=== PATIENT | male | born 2000 | race Caucasian/White ===

== ENCOUNTER 2023-10-10 16:34 | Inpatient (IN) | payer OTHER ==
--- NOTE | 2023-10-10 16:40 | ED ---
General Adult HPI - General Source: patient, RN notes reviewed <Angelique Shane - Last Filed: 10/10/23 16:38> <Reynaldo Drummond - Last Filed: 10/11/23 03:09> - General Stated complaint: sore throat Time Seen by Provider: 10/10/23 16:38 - History of Present Illness Initial comments: 22 year old male presents to the emergency department for evaluation of sore throat and chest congestion. He reports redness to the back of his throat with painful swallowing. (Angelique Shane) 22-year-old male presenting with chief complaint of sore throat. Patient has had symptoms since Sunday. In addition to sore throat he admits to chest congestion, nausea, vomiting, and cough. He is having no chest pain or difficulty breathing. States that he previously had a fever. No dysphagia. No recent surgery. No injury or trauma. (Reynaldo Drummond) - Related Data Home Medications Medication Instructions Recorded Confirmed No Known Home Medications 10/10/23 10/10/23 Allergies Allergy/AdvReac Type Severity Reaction Status Date / Time citric acid Allergy Itching in Verified 10/10/23 22:13 throat Review of Systems ROS Other: All systems not noted in ROS Statement are negative. <Angelique Shane - Last Filed: 10/10/23 16:38> ROS Other: All systems not noted in ROS Statement are negative. <Reynaldo Drummond - Last Filed: 10/11/23 03:09> ROS Statement: Those systems with pertinent positive or pertinent negative responses have been documented in the HPI. General Exam <Angelique Shane - Last Filed: 10/10/23 16:38> Limitations: no limitations General appearance: alert, in no apparent distress Head exam: Present: atraumatic, normocephalic Eye exam: Present: normal appearance, EOMI Expanded Mouth exam: Present: normal external inspection Throat exam: tonsillar erythema Neck exam: Present: normal inspection, other (Subcutaneous emphysema felt on p alpation) Respiratory exam: Present: normal lung sounds bilaterally. Absent: respiratory distress, wheezes, rales, rhonchi, stridor Cardiovascular Exam: Present: regular rate, normal rhythm, normal heart sounds. Absent: systolic murmur, diastolic murmur, rubs, gallop, clicks Neurological exam: Present: alert, oriented X3 Psychiatric exam: Present: normal affect, normal mood Skin exam: Present: warm, dry <Reynaldo Drummond - Last Filed: 10/11/23 03:09> - General Exam Comments Initial Comments: Visual Physical Exam Vital signs reviewed General: Well-appearing, nontoxic, no acute distress. Head: Normocephalic, atraumatic Eyes: PERRLA, EOMI ENT: Airway patent Chest: Nonlabored breathing Skin: No visual rash, normal skin tone Neuro: Alert and oriented 3 Musculoskeletal: No gross abnormalities (Angelique Shane) Course Vital Signs 10/10/23 10/10/23 10/11/23 19:12 23:00 01:00 Temperature 98.9 F Pulse Rate 52 L 60 60 Respiratory 18 16 16 Rate Blood Pressure 108/72 121/90 O2 Sat by Pulse 100 96 98 Oximetry Medical Decision Making <Angelique Shane - Last Filed: 10/10/23 16:38> - Lab Data Result diagrams: 10/10/23 20:51 10/10/23 20:51 <Reynaldo Drummond - Last Filed: 10/11/23 03:09> - Medical Decision Making Quick note preformed by Angelique Shane PA-C (Angelique Shane) This is a 22-year-old male presenting with chief complaint of sore throat, chest congestion, vomiting ongoing since Sunday. Patient is having no dysphagia, difficulty breathing, chest pain, abdominal pain. On physical exam there was crepitus felt over palpation of the neck. Patient is negative for influenza, COVID, RSV, and group A strep. On x-ray there is evidence of pneumomediastinum with subcutaneous gas in the lower neck soft tissues. Patient is informed of these results. He will require admission with IV antibiotics. Basic labs are ordered and Unasyn is ordered. CT with contrast of the chest abdomen and pelvis is ordered. Patient is then brought to room 15 from the waiting room at 2052 and medications are administered. Patient is agreeable with plan for admission. I discussed this case with my attending Dr. Antunez. Was pt. sent in by a medical professional or institution (, PA, [facility], urgent care, hospital, or [facility]...) When possible be specific @ -No Did you speak to anyone other than the patient for history (EMS, parent, family, police, friend...)? What history was obtained from this source @ -No Did you review nursing and triage notes (agree or disagree)? Why? @ -I reviewed and agree with nursing and triage notes Were old charts reviewed (outside hosp., previous admission, EMS record, old EKG, old radiological studies, urgent care reports/EKG's, [facility] records)? Report findings @ -No old charts were reviewed Differential Diagnosis (chest pain, altered mental status, abdominal pain women, abdominal pain men, vaginal bleeding, weakness, fever, dyspnea, syncope, headache, dizziness, GI bleed, back pain, seizure, CVA, palpatations, mental health, musculoskeletal)? @ -Differential includes strep throat, viral pharyngitis, peritonsillar abscess, epiglottitis, rupture, this is not an all-inclusive list EKG interpreted by me (3pts min.). @ -As above X-rays interpreted by me (1pt min.). @ -Chest x-ray shows pneumomediastinum with subcutaneous gas in the lower neck soft tissues CT interpreted by me (1pt min.). @ -CT shows extensive subcutaneous emphysema in the neck, mediastinum and throughout the upper thorax. No evidence for pneumothorax. No bronchial wall defect definitively visualized and there is no defect within the esophagus. Mild bilateral gynecomastia. U/S interpreted by me (1pt. min.). @ -None done What testing was considered but not performed or refused? (CT, X-rays, U/S, labs)? Why? @ -None What meds were considered but not given or refused? Why? @ -None Did you discuss the management of the patient with other professionals (professionals i.e. , PA, [facility], lab, RT, psych nurse, social worker health services, pile driving setter, teacher, airframe technical officer, assistant case manager)? Give summary @ -I spoke with Tucker Kong from [facility] hospitalist group who accepted admission Was smoking cessation discussed for >3mins.? @ -No Was critical care preformed (if so, how long)? @ -No Were there social determinants of health that impacted care today? How? (Homelessness, low income, unemployed, alcoholism, drug addiction, transportation, low edu. Level, literacy, decrease access to med. care, [place] [facility], rehab)? @ -No Was there de-escalation of care discussed even if they declined (Discuss DNR or withdrawal of care, Hospice)? DNR status @ -No What co-morbidities impacted this encounter? (DM, HTN, Smoking, COPD, CAD, Cancer, CVA, ARF, Chemo, Hep., AIDS, mental health diagnosis, sleep apnea, morbid obesity)? @ -None Was patient admitted / discharged? Hospital course, mention meds given and route, prescriptions, significant lab abnormalities, going to OR and other pertinent info. @ -Patient admitted, see above for details Undiagnosed new problem with uncertain prognosis? @ -No Drug Therapy requiring intensive monitoring for toxicity (Heparin, Nitro, Insulin, Cardizem)? @ -No Were any procedures done? @ -No Diagnosis/symptom? @ -Pneumomediastinum Acute, or Chronic, or Acute on Chronic? @ -Acute Uncomplicated (without systemic symptoms) or Complicated (systemic symptoms)? @ -Complicated Side effects of treatment? @ -No Exacerbation, Progression, or Severe Exacerbation? @ -No Poses a threat to life or bodily function? How? (Chest pain, [place], CA, pneumonia, PE, COPD, DKA, ARF, appy, cholecystitis, CVA, Diverticulitis, Homicidal, Suicidal, threat to staff... and all critical care pts) @ -Yes (Reynaldo Drummond) - Lab Data Lab Results 10/10/23 10/10/23 10/10/23 Range/Units 17:27 17:27 20:51 WBC 10.1 (4.0-11.0) k/uL RBC 5.07 (4.30-5.90) m/uL Hgb 15.2 (13.0-17.5) gm/dL Hct 44.4 (39.0-53.0) % MCV 87.6 (80.0-100.0) fL MCH 30.0 (25.0-35.0) pg MCHC 34.2 (31.0-37.0) g/dL RDW 12.3 (11.5-15.5) % Plt Count 199 (150-450) k/uL MPV 9.7 Neutrophils % 46 % Lymphocytes % 43 % Monocytes % 5 % Eosinophils % 4 % Basophils % 0 % Neutrophils # 4.7 (1.3-7.7) k/uL Lymphocytes # 4.4 (1.0-4.8) k/uL Monocytes # 0.5 (0-1.0) k/uL Eosinophils # 0.4 (0-0.7) k/uL Basophils # 0.0 (0-0.2) k/uL Sodium (137-145) mmol/L Potassium (3.5-5.1) mmol/L Chloride (98-107) mmol/L Carbon Dioxide (22-30) mmol/L Anion Gap mmol/L BUN (9-20) mg/dL Creatinine (0.66-1.25) mg/dL Est GFR (CKD-EPI)AfAm (>60 ml/min/1.73 sqM) Est GFR (CKD-EPI)NonAf (>60 ml/min/1.73 sqM) Glucose (74-99) mg/dL Calcium (8.4-10.2) mg/dL Total Bilirubin (0.2-1.3) mg/dL AST (17-59) U/L ALT (4-49) U/L Alkaline Phosphatase (38-126) U/L Total Protein (6.3-8.2) g/dL Albumin (3.5-5.0) g/dL Influenza Type A (PCR) Not Detected (Not Detectd) Influenza Type B (PCR) Not Detected (Not Detectd) RSV (PCR) Not Detected (Not Detectd) SARS-CoV-2 (PCR) Not Detected (Not Detectd) Group A Strep (PCR) NOT DETECTED (Not Detectd) 10/10/23 Range/Units 20:51 WBC (4.0-11.0) k/uL RBC (4.30-5.90) m/uL Hgb (13.0-17.5) gm/dL Hct (39.0-53.0) % MCV (80.0-100.0) fL MCH (25.0-35.0) pg MCHC (31.0-37.0) g/dL RDW (11.5-15.5) % Plt Count (150-450) k/uL MPV Neutrophils % % Lymphocytes % % Monocytes % % Eosinophils % % Basophils % % Neutrophils # (1.3-7.7) k/uL Lymphocytes # (1.0-4.8) k/uL Monocytes # (0-1.0) k/uL Eosinophils # (0-0.7) k/uL Basophils # (0-0.2) k/uL Sodium 142 (137-145) mmol/L Potassium 3.8 (3.5-5.1) mmol/L Chloride 106 (98-107) mmol/L Carbon Dioxide 26 (22-30) mmol/L Anion Gap 10 mmol/L BUN 16 (9-20) mg/dL Creatinine 0.66 (0.66-1.25) mg/dL Est GFR (CKD-EPI)AfAm >90 (>60 ml/min/1.73 sqM) Est GFR (CKD-EPI)NonAf >90 (>60 ml/min/1.73 sqM) Glucose 86 (74-99) mg/dL Calcium 9.2 (8.4-10.2) mg/dL Total Bilirubin 0.8 (0.2-1.3) mg/dL AST 41 (17-59) U/L ALT 22 (4-49) U/L Alkaline Phosphatase 75 (38-126) U/L Total Protein 7.0 (6.3-8.2) g/dL Albumin 4.4 (3.5-5.0) g/dL Influenza Type A (PCR) (Not Detectd) Influenza Type B (PCR) (Not Detectd) RSV (PCR) (Not Detectd) SARS-CoV-2 (PCR) (Not Detectd) Group A Strep (PCR) (Not Detectd) Disposition <Angelique Shane - Last Filed: 10/10/23 16:38> Time of Disposition: 20:48 <Reynaldo Drummond - Last Filed: 10/11/23 03:09> Clinical Impression: Pneumomediastinum Disposition: ADMITTED IP TO THIS HOSP Condition: Fair
--- NOTE | 2023-10-10 20:24 | XR ---
EXAMINATION TYPE: XR chest 2V DATE OF EXAM: 10/10/2023 8:17 PM CLINICAL INDICATION:Male, 22 years old with history of chest congestion; PHH COMPARISON: None TECHNIQUE: XR chest 2V Frontal and lateral views of the chest. FINDINGS: Lungs/Pleura: There is no evidence of pleural effusion, focal consolidation, or pneumothorax. Pulmonary vascularity: Unremarkable. Heart/mediastinum: Cardiomediastinal silhouette is unremarkable. Musculoskeletal: No acute osseous pathology. Other findings: Subcutaneous gas in the neck bilaterally. Additionally there is suspected pneumoperit oneum on lateral view. IMPRESSION: Pneumomediastinum with subcutaneous gas in the lower neck soft tissues.
[2023-10-10] MEDS ORDERED: AMPICILLIN-SULBACTAM 3 GM in SODIUM CHLORIDE 0.9% 100 ML IVPB STA (20:36)
[2023-10-10 21:20] LABS: Basophils % (A) 0 %; Eosinophils # (A) 0.4 k/uL (0-0.7); Eosinophils % (A) 4 %; HCT 44.4 % (39.0-53.0); HGB 15.2 gm/dL (13.0-17.5); Lymphocytes # (A) 4.4 k/uL (1.0-4.8); Lymphocytes % (A) 43 %; MCHC 34.2 g/dL (31.0-37.0); MCV 87.6 fL (80.0-100.0); Mean Platelet Volume 9.7; Monocytes # (A) 0.5 k/uL (0-1.0); Monocytes % (A) 5 %; Neutrophils # (A) 4.7 k/uL (1.3-7.7); Neutrophils % (A) 46 %; Platelet Count 199 k/uL (150-450); RBC 5.07 m/uL (4.30-5.90); RDW 12.3 % (11.5-15.5); WBC 10.1 k/uL (4.0-11.0)
[2023-10-10 21:23] LABS: ALT 22 U/L (4-49); AST 41 U/L (17-59); African American GFR (CKD) >90 (>60 ml/min/1.73 sqM); Albumin 4.4 g/dL (3.5-5.0); Alkaline Phosphatase 75 U/L (38-126); Anion Gap 10 mmol/L; Blood Urea Nitrogen 16 mg/dL (9-20); Calcium 9.2 mg/dL (8.4-10.2); Carbon Dioxide 26 mmol/L (22-30); Chloride 106 mmol/L (98-107); Glucose 86 mg/dL (74-99); Non-African American GFR(CKD) >90 (>60 ml/min/1.73 sqM); Potassium 3.8 mmol/L (3.5-5.1); Sodium 142 mmol/L (137-145); Total Bilirubin 0.8 mg/dL (0.2-1.3)
--- NOTE | 2023-10-10 21:35 | CT ---
EXAMINATION TYPE: CT ChestAbdPelvis w con CT DLP: 571.3 mGycm, Automated exposure control for dose reduction was used. DATE OF EXAM: 10/10/2023 9:22 PM COMPARISON: Same day radiograph CLINICAL INDICATION:Male, 22 years old with history of pneumomediastinum; PHH, pneumomediastinum Technique: CT ChestAbdPelvis w con; Multiple axial images were obtained. Two-dimensional coronal and sagittal reconstructions were obtained. Contrast used:100ml mL of Isovue 300 with IV Contrast, Oral contrast used: without Oral Contrast Findings: CHEST: LUNGS/ PLEURA: The lung parenchyma appears unremarkable. AIRWAY: Patent and unremarkable. No evidence for perforation however it is suggested given secondary findings of subcutaneous gas. HEART: Size within normal limits. MEDIASTINUM: No gross evidence of adenopathy. No gas is visualized within the esophagus throughout th e mediastinum. VASCULATURE: No aortic aneurysm. No evidence for pulmonary embolus. No evidence for aortic dissectio n. MUSCULOSKELETAL: No acute osseous abnormalities. SOFT TISSUES/LYMPH NODES: Bilateral gynecomastia changes. LOWER NECK: Subcutaneous gas is seen throughout the lower neck bilaterally. Gas surrounds the trachea , esophagus and extends inferiorly into the axilla bilaterally, the posterior thorax and into the med iastinum. Gas extending inferiorly into the mediastinum surrounds the major vessels of the heart and predominantly in the superior aspect of the mediastinum. Gas tracking even further inferiorly with si ngle focus of gas thought to be present in the gastroesophageal junction. ABDOMEN: ABDOMEN LIVER: Unremarkable GALLBLADDER AND BILE DUCTS: Unremarkable. PANCREAS: Unremarkable. SPLEEN: Unremarkable. ADRENAL GLANDS: Unremarkable. KIDNEYS AND URETERS: No evidence of hydronephrosis or renal calculus. The ureters are unremarkable. PELVIS BLADDER: Unremarkable REPRODUCTIVE: Unremarkable. ABDOMEN & PELVIS STOMACH AND BOWEL: No evidence of bowel obstruction. PERITONEUM: No evidence of pneumoperitoneum or free fluid. VASCULATURE: No evidence of aortic aneurysm. MUSCULOSKELETAL: No acute osseous abnormalities LYMPH NODES: No gross evidence for lymphadenopathy. SOFT TISSUE/ABDOMINAL WALL: Unremarkable IMPRESSION: 1. Extensive subcutaneous emphysema in the neck, mediastinum and throughout the upper thorax. No araceli dence for pneumothorax. No bronchial wall defect definitively visualized and there is no defect withi n the esophagus. 2. Mild bilateral gynecomastia.
[2023-10-10] MEDS ORDERED: NALOXONE 0.4 MG/ML 1 ML VIAL IV PRN (21:52)
[2023-10-10] MEDS ORDERED: KETOROLAC 15 MG/ML 1 ML VIAL IVP PRN (21:52)
[2023-10-10] MEDS ORDERED: ONDANSETRON 4 MG/2 ML VIAL IVP PRN (21:52)
[2023-10-10] MEDS ORDERED: SODIUM CHLORIDE 0.9% 1,000 ML IV SCH (23:30)
--- NOTE | 2023-10-11 04:04 | P.CNPUL ---
History of Present Illness Consult date: 10/11/23 Requesting physician: Reynaldo Drummond Reason for consult: other (Pneumomediastinum) Chief complaint: Nausea vomiting/retching and chest pressure History of present illness: I am seeing this patient in consultation today October 11, 2023 in the emergency room after he came in with chest pressure, neck pain, and painful swallowing. Patient is a 22-year-old male without notable past medical history. Earlier in the week the patient was experiencing intractable nausea and vomiting. He states that he was retching hard. Endorses odynophagia. Denies hematemesis. He attributes this to possible food poisoning. Subsequently, developed neck and chest swelling and chest pressure especially when lying flat. Denies any trauma, recent surgery. Denies any shortness of breath or significant coughing. Admits mild coughing early in the week. Also, occasionally smokes marijuana. No pulmonary diseases. Denies any tobacco use. Arrival to the emergency room last night, chest x-ray identified a pneumomediastinum with subcutaneous gas in the lower neck soft tissues. Follow-up CT of the chest, abdomen, and pelvis with contrast identified extensive subcutaneous emphysema in the neck, mediastin um, and throughout the upper thorax. No pneumothorax. No bronchial wall defect definitively visualized and there is no defect within the esophagus. Patient is currently lying in bed sleeping, on room air, in no acute distress. There is obvious upper chest and neck crepitus and subcutaneous emphysema. The nurse is going to outline the subcutaneous emphysema for monitoring. CBC unremarkable. BMP unremarkable. Normal saline infusing at 75 mL/h. Negative for influenza, RSV, COVID. Patient does have as needed Zofran, but has not been needed. Hemodynamically stable. Review of Systems REVIEW OF SYSTEMS: CONSTITUTIONAL: Denies any recent significant weight loss or weight gain. EYES: Denies change in vision. EARS, NOSE, MOUTH, THROAT: Denies headaches, denies sore throat. CARDIOVASCULAR: Denies chest pain, palpitations or syncopal episodes. RESPIRATORY: Denies shortness of breath, congestion or hemoptysis. Admits occasional cough earlier in the week. GASTROINTESTINAL: Severe intractable nausea and vomiting, this is since subsided. No hematemesis. No diarrhea. GENITOURINARY: Denies hematuria, denies infections. MUSKULOSKELETAL: Denies pain, denies swelling. INTEGUMENTARY: Denies rash, denies eczema. NEUROLOGICAL: Denies recent memory loss, no recent seizure activity. PSYCHIATRIC: Denies anxiety, denies depression. HEMATOLOGIC/LYMPHATIC: Denies anemia, denies enlarged lymph node Past Medical History Past Medical History: No Reported History, Asthma History of Any Multi-Drug Resistant Organisms: None Reported Past Surgical History: No Surgical Hx Reported Past Psychological History: No Psychological Hx Reported Smoking Status: Current every day smoker Past Alcohol Use History: Occasional Past Drug Use History: None Reported Medications and Allergies Home Medications Medication Instructions Recorded Confirmed Type No Known Home Medications 10/10/23 10/10/23 History Allergies Allergy/AdvReac Type Severity Reaction Status Date / Time citric acid Allergy Itching in Verified 10/10/23 22:13 throat Physical Exam Vitals: Vital Signs Temp Pulse Resp BP Pulse Ox 10/11/23 01:00 60 16 98 10/10/23 23:00 60 16 121/90 96 10/10/23 19:12 98.9 F 52 L 18 108/72 100 Intake and Output 10/10/23 10/10/23 10/11/23 14:59 22:59 06:59 Other: Weight 56.699 kg GENERAL EXAM: Alert, 22-year-old white male, well nourished, comfortable in no apparent distress. HEAD: Normocephalic and atraumatic EYES: Normal reaction of pupils, equal size. NOSE: Clear with pink turbinates. THROAT: No erythema or exudates. NECK: No masses, no JVD. CHEST: There is significant upper chest subcutaneous emphysema extending to the neck and posterior shoulders bilaterally. LUNGS: Equal air entry with no crackles, wheeze, rhonchi or dullness. Room air. No conversational dyspnea or accessory muscle use.. CVS: S1 and S2 normal with no audible murmur, regular rhythm. No extra heart sounds ABDOMEN: No hepatosplenomegaly, active bowel sounds, no guarding or rigidity. SPINE: No scoliosis or deformity SKIN: No rashes CENTRAL NERVOUS SYSTEM: No focal deficits, tone is normal in all 4 extremities. EXTREMITIES: There is no peripheral edema, clubbing, or cyanosis. Peripheral pulses are intact. Results - Laboratory Findings CBC and BMP: 10/10/23 20:51 10/10/23 20:51 - Diagnostic Findings Chest x-ray: image reviewed CT scan - chest: image reviewed Assessment and Plan Assessment: Pneumomediastinum with associated subcutaneous emphysema possibly related to intractable nausea vomiting/retching. CT of the chest, abdomen, and pelvis identified extensive subcutaneous emphysema in the neck, mediastinum, and throughout the upper thorax. No pneumothorax. No bronchial wall defect definitively visualized and there is no identified defect within the esophagus such as Pearl-Prieto tear or Boerhaave's syndrome. No acute intrabdominal findings. Intractable nausea and vomiting, improved Odynophagia Occasional marijuana smoker Plan: Patient's labs and imaging reviewed Nurse will outline subcutaneous emphysema to monitor for worsening. Nausea and vomiting has stopped. As needed Zofran if needed. Continue NPO No observable coughing. No plans for bronchoscopy by the pulmonary team at this time. May consider GI consultation for esophagoscopy evaluation if subcutaneous emphysema worsens. Recommend admitting the patient for observation for at least 24 hours. We will continue to follow I have personally seen and examined the patient, performed the documentation and the assessment and plan as written. Number of minutes spent on the visit:20 Time with Patient: Greater than 30
[2023-10-11 06:37] VITALS: TEMP 97.6
[2023-10-11 10:06] VITALS: RESP 18
--- NOTE | 2023-10-11 11:51 | P.HPIM ---
History of Present Illness Patient is a 22-year-old pleasant male came with complaints of nausea vomiting which has been going on for last few days and started having neck pain and spongy feeling in the neck found to have cutaneous emphysema, pneumomediastinum without pneumothorax. Patient also has throat pain does have tonsillitis rapid strep tapestry is negative for any streptococcal infection. Patient received 1 dose of antibiotic in ER REVIEW OF SYSTEMS: CONSTITUTIONAL: No fever, no malaise, no fatigue. HEENT: As mentioned in HPI CARDIOVASCULAR: No chest pain, orthopnea, PND, no palpitations, no syncope. PULMONARY: No shortness of breath, no cough, no hemoptysis. GASTROINTESTINAL: No diarrhea, no nausea, no vomiting, no abdominal pain. NEUROLOGICAL: No headaches, no weakness, no numbness. HEMATOLOGICAL: Denies any bleeding or petechiae. GENITOURINARY: Denies any burning micturition, frequency, or urgency. MUSCULOSKELETAL/RHEUMATOLOGICAL: Denies any joint pain, swelling, or any muscle pain. ENDOCRINE: Denies any polyuria or polydipsia. The rest of the 14-point review of systems is negative. PHYSICAL EXAMINATION: GENERAL: The patient is alert and oriented x3, not in any acute distress. Well developed, well nourished. HEENT: Pupils are round and equally reacting to light. EOMI. No scleral icterus. No conjunctival pallor. Normocephalic, atraumatic.No thyromegaly. Palpable crepitus, patient has redness in the tonsils without any significant pharyngeal erythema CARDIOVASCULAR: S1 and S2 present. No murmurs, rubs, or gallops. PULMONARY: Chest is clear to auscultation, no wheezing or crackles. ABDOMEN: Soft, nontender, nondistended, normoactive bowel sounds. No palpable organomegaly. MUSCULOSKELETAL: No joint swelling or deformity. EXTREMITIES: No cyanosis, clubbing, or pedal edema. NEUROLOGICAL: Gross neurological examination did not reveal any focal deficits. SKIN: No rashes. Assessment and plan -Subcutaneous emphysema and pneumomediastinum: Secondary to retching, Boerhaave syndrome. This is expected to improve in about a week to 10 days patient will be given a dose of Protonix and if he is able to tolerate diet patient will be discharged today. -Acute tonsillitis probably viral in nature follow-up with ENT as an outpatient -Nicotine use, marijuana use: Counseling was provided marijuana can cause vomiting and retching. -Possible gastritis: Patient will be given a week of Protonix Patient will be discharged today Past Medical History Past Medical History: No Reported History, Asthma History of Any Multi-Drug Resistant Organisms: None Reported Past Surgical History: No Surgical Hx Reported Past Psychological History: No Psychological Hx Reported Smoking Status: Current every day smoker Past Alcohol Use History: Occasional Past Drug Use History: None Reported Medications and Allergies Home Medications Medication Instructions Recorded Confirmed Type Pantoprazole Sodium [Protonix] 20 mg PO [id number] #7 tab 10/11/23 Rx Allergies Allergy/AdvReac Type Severity Reaction Status Date / Time citric acid Allergy Itching in Verified 10/10/23 22:13 throat Physical Exam Vitals: Vital Signs Temp Pulse Resp BP Pulse Ox 10/11/23 10:01 44 L 18 105/71 98 10/11/23 06:15 97.6 F 48 L 20 111/67 95 10/11/23 03:53 49 L 13 110/74 98 10/11/23 01:00 60 16 98 10/10/23 23:00 60 16 121/90 96 10/10/23 19:12 98.9 F 52 L 18 108/72 100 Intake and Output 10/10/23 10/11/23 10/11/23 22:59 06:59 14:59 Other: Weight 56.699 kg Results CBC & Chem 7: 10/10/23 20:51 10/10/23 20:51
[2023-10-11] MEDS ORDERED: PANTOPRAZOLE 40 MG/10 ML VIAL IVP SCH (12:00)
[2023-10-11 12:27] VITALS: BP 120/76; PULSE 78
== END 2023-10-11 12:14 | disposition home or self-care (01) | DRG 369 ==
LOC: EC 16:34 → 2CATHESU 23:04 → 3SCARD 10-11 05:34
PROVIDERS: ADMIT Hospitalist; ATTEND Hospitalist
DX: K22.3 Perforation of esophagus (principal); T79.7XXA Traumatic subcutaneous emphysema, initial encounter; F17.210 Nicotine dependence, cigarettes, uncomplicated; J03.90 Acute tonsillitis, unspecified; N62 Hypertrophy of breast; R13.10 Dysphagia, unspecified; Z71.51 Drug abuse counseling and surveillance of drug abuser; K29.70 Gastritis, unspecified, without bleeding; Z11.52 Encounter for screening for COVID-19; M54.2 Cervicalgia; R11.2 Nausea with vomiting, unspecified
CPT/HCPCS: 36415; 71046; 71260; 74177; 80053; 85025; 87636; 87651; 96361; 96365; 96375; 99285